=== PATIENT | male | born 1950 | race Caucasian/White ===

== ENCOUNTER → 2017-01-15 19:42 | Emergency (ER) | payer MEDICARE, OTHER ==
--- NOTE | ~2017-01-15 | EKG ---
PATIENT: GENNARO HERNANDEZ UNIT #: [id number] Ventricular Rate: 80 BPM Atrial Rate: 80 BPM P-R Interval: 154 ms QRS Duration: 94 ms Q-T Interval: 392 ms QTC Calculation(Bezet): 452 ms P [place]: -2 degrees Calculated T [place]: 47 degrees Diagnosis Line: Normal sinus rhythm Diagnosis Line: Normal ECG Diagnosis Line: When compared with ECG of 27-JUL-2015 10:37, Diagnosis Line: No significant change was found Diagnosis Line: Confirmed by MELISSA MONTERROSO MD ([id number]) on 01/17/2017 Diagnosis Line: 6:55:01 PM INTERPRETING MD: LOC JORDAN
[~2017-01-15 19:42] MED LIST: ACETAMINOPHEN PO; ALLOPURINOL300 MG PO; ALPRAZOLAM1 MG PO; BUSPAR15 M1 PO; CIPRO PO; CLINDAMYCIN HC300 MG PO; DICLOFENAC PO; EXFORGE 5-160 M1 TAB PO; INDOMETHACIN50 MG PO; LIPITOR20 MG PO; LORTAB 10-5001 EACH PO; OXYCODONE HCL30 MG PO; OXYCODONE15 M1 PO; XANAX1 MG PO; XIFAXAN550 MG PO
== END | disposition left against medical advice (07) ==
LOC: CED 19:42
DX: Z53.21 Procedure and treatment not carried out due to patient leaving prior to being seen by health care provider (principal)
CPT/HCPCS: 93005

== ENCOUNTER 2017-06-29 19:27 | Emergency (ER) | payer MEDICARE ==
--- NOTE | ~2017-06-29 | EKG ---
PATIENT: GENNARO HERNANDEZ UNIT #: [id number] Ventricular Rate: 90 BPM Atrial Rate: 90 BPM P-R Interval: 134 ms QRS Duration: 94 ms Q-T Interval: 374 ms QTC Calculation(Bezet): 457 ms P [place]: 76 degrees Calculated R [place]: 19 degrees Calculated T [place]: 32 degrees Diagnosis Line: Sinus rhythm with Premature supraventricular Diagnosis Line: complexes Diagnosis Line: Otherwise normal ECG Diagnosis Line: When compared with ECG of 15-JAN-2017 19:14, Diagnosis Line: Premature supraventricular complexes are now Diagnosis Line: Present Diagnosis Line: Confirmed by SURAJ CORTEZ MD ([id number]) on Diagnosis Line: 06/30/2017 8:06:17 AM INTERPRETING MD: DNAA JORDAN
--- NOTE | ~2017-06-29 | CR72 ---
[facility] A Service of [facility] RADIOLOGY TEXT RESULTS PATIENT: GENNARO HERNANDEZ LOCATION: [facility] : 48 UNIT #: [id number] AGE: [address]: Kelvin Patel MD SEX: M ORDER DR: [id number] [facility] [address] [place], [place] [address] [id number] E MR#: [id number] Acc #: [id number] NAME: GENNARO HERNANDEZ : 1950 SEX: M STUDY DATE/TIME: 06/29/2017 20:29 UNIT: [facility] ROOM: STUDY DESCRIPTION: CR Chest Single View Portable Attending Physician: Kelvin Patel M.D. Ordering Physician: Kelvin Patel M.D. Primary Care Physician: Carmenza Ramsay M.D. MEDICAL IMAGING REPORT This report is preliminary unless electronic signature is present EXAM Portable chest HISTORY Chest pain and shortness of air for 3 hours today. FINDINGS Cardiac size and pulmonary vascularity are within normal limits. Minimal linear atelectasis or scarring in the lateral left base. No airspace infiltrates or effusions. Minimal right thoracic curve. Moderate hypertrophic spurring at multiple thoracic levels. IMPRESSION No acute findings. Dictated by... Artie Bates M.D. THIS IS AN ELECTRONICALLY VERIFIED REPORT Artie Bates M.D. at 06/30/2017 3:35 PM DFL/psc TD: 06/30/2017 11:39 JOB #: [id number] MEDICAL IMAGING REPORT Page 1 of 1 COPY
[2017-06-29 21:30] LABS: BASOPHIL# 0.1 X10e3 (0-0.3); BASOPHIL% 0.8 % (0-2.5); EOSINOPHIL# 0.3 X10e3 (0-0.7); EOSINOPHIL% 2.6 % (0.0-7.0); HEMATOCRIT 36.5 % (38.0-50.0); HEMOGLOBIN 12.2 gm/dL (13.0-16.0); LYMPHOCYTE# 1.6 X10e3 (1.0-3.5); LYMPHOCYTE% 15.1 % (17.0-45.0); MEAN CORPUSCULAR HGB CONC 33.4 g/dL (30-36); MEAN PLATELET VOLUME 7.7 FL (6.5-11.5); MONOCYTE# 1.1 X10e3 (0-1.0); MONOCYTE% 10.6 % (3.0-12.0); NEUTROPHIL# 7.3 X10e3 (1.5-7.1); NEUTROPHIL% 70.9 % (40-75); PLATELET COUNT 477 X10e3 (140-420); RED BLOOD COUNT 4.51 X10e (3.90-5.60); RED CELL DISTRIBUTION WIDTH 14.6 % (11.0-15.5); WHITE BLOOD COUNT 10.4 X10e3 (4.0-10.5)
[2017-06-29 21:32] LABS: DIFF IND NO
[2017-06-29 21:44] LABS: PARTIAL THROMBOPLASTIN TIME 30.2 SECONDS (23.5-31.3); PROTHROMBIN TIME (PATIENT) 11.2 SECONDS (10.0-11.7)
[2017-06-29 21:45] LABS: POC - CKMB 4.5 ng/mL (0.0-7.9); POC - TROPONIN <0.05 ng/mL (<=0.05)
[2017-06-29 21:53] LABS: ALBUMIN SERUM 3.1 g/dL (3.5-5.0); BILIRUBIN, DIRECT 0.1 mg/dL (0.0-0.2); BILIRUBIN,INDIRECT 0.2 mg/dL (0.0-0.9); BILIRUBIN,TOTAL 0.3 mg/dL (0.2-2.0); BUN/CREATININE RATIO 8.75; CALCIUM SERUM 8.8 mg/dL (8.4-10.2); CREATININE SERUM 0.8 mg/dL (0.6-1.4); GLOM FILT RATE Estimated 92.5 mL/min (>60); POTASSIUM 3.3 mmol/L (3.5-5.1); PROTEIN TOTAL SERUM 7.9 g/dL (6.0-8.3)
[2017-06-29 22:02] LABS: POC - CKMB 4.1 ng/mL (0.0-7.9); POC - TROPONIN <0.05 ng/mL (<=0.05)
== END 2017-06-29 22:45 | disposition home or self-care (01) ==
LOC: CED 19:27
PROVIDERS: Emergency Medicine
DX: R07.9 Chest pain, unspecified (principal); I10 Essential (primary) hypertension; E78.5 Hyperlipidemia, unspecified; Z88.2 Allergy status to sulfonamides; Z88.8 Allergy status to other drugs, medicaments and biological substances
CPT/HCPCS: 36415; 71010; 80048; 80076; 82553; 84484; 85025; 85610; 85730; 93005; 96360; 99285

== ENCOUNTER → 2017-06-30 | Outpatient (CLI) | payer MEDICARE ==
--- NOTE | ~2017-06-30 | XA30 ---
[facility] A Service of [facility] & [facility] RADIOLOGY TEXT RESULTS PATIENT: GENNARO HERNANDEZ LOCATION: [facility] : 48 UNIT #: [id number] AGE: [address]: Luigi Palmer MD SEX: M ORDER DR: [id number] [facility] [address] [place], [place] [address] [id number] O MR#: [id number] Acc #: [id number] NAME: GENNARO HERNANDEZ : 1950 SEX: M STUDY DATE/TIME: 06/30/2017 15:29 UNIT: [facility] ROOM: STUDY DESCRIPTION: XA Arthrocentesis Major Joint Attending Physician: Luigi Palmer M.D. Referring Physician: Luigi Palmer M.D. Ordering Physician: Luigi Palmer M.D. Primary Care Physician: Carmenza Ramsay M.D. MEDICAL IMAGING REPORT This report is preliminary unless electronic signature is present EXAM Right hip aspiration. INDICATIONS Right hip pain. Patient underwent hip replacement in September of last year. He reports increasing right hip pain over the past month. PROCEDURE The risks, benefits, and alternatives to the procedure were explained to the patient, and signed, informed consent was obtained. He was placed supine on the angiographic table and was prepped and draped in usual sterile fashion. Time-out was performed as per protocol. Skin and subcutaneous tissues were anesthetized with buffered lidocaine. 22-gauge spinal needle was advanced into the joint space. I was able to aspirate a minimal amount of some serosanguineous material. This is approximately 1 mL and we will send this to the lab for Gram stain, culture and sensitivity. Needle was removed and manual pressure was applied until hemostasis was obtained. Total fluoroscopy time was 0.5 minutes. A single fluoroscopic image was obtained. IMPRESSION Technically successful fluoroscopically guided right hip aspiration. Fluoroscopy was used during the procedure and permanent images were saved. I was only able to aspirate about 1 mL of serosanguineous material. Dictated by... Maria A Johnson M.D. THIS IS AN ELECTRONICALLY VERIFIED REPORT Maria A Johnson M.D. at 07/01/2017 5:04 PM AFF/psc [facility] A Service of [facility] & [facility] RADIOLOGY TEXT RESULTS PATIENT: GENNARO HERNANDEZ [facility] [id number] : [birth year] UNIT #: [id number] AGE: [address]: Luigi Palmer MD SEX: M ORDER DR: TD: 07/01/2017 13:02 JOB #: [id number] MEDICAL IMAGING REPORT Page 1 of 1 COPY
== END | disposition home or self-care (01) ==
LOC: CIVR 14:18
DX: T84.84XA Pain due to internal orthopedic prosthetic devices, implants and grafts, initial encounter (principal); M25.551 Pain in right hip; Z96.641 Presence of right artificial hip joint
CPT/HCPCS: 36415; 77002; 85652; 86140; 87070; 87205; J1030